=== PATIENT | female | born 1980 ===

== ENCOUNTER 2021-02-01 09:04 | Emergency (ER) | payer OTHER ==
[~2021-02-01 09:04] MED LIST: Iopamidol 612 MG/ML 100 ML Bottle IVPUSH ONE
[2021-02-01 09:31] LABS: ANION GAP 15.6 mEq/L (7-13); CHLORIDE,CL 106 mmol/L (98-107); SODIUM,NA 142 mmol/L (136-145)
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
[2021-02-01] MEDS ORDERED: Acetaminophen 500 MG Tab PO ONE (11:09)
== END 2021-02-01 12:47 | disposition home or self-care (01) ==
LOC: DL.ED 09:04
DX: S00.03XA Contusion of scalp, initial encounter (principal); S80.11XA Contusion of right lower leg, initial encounter; S40.022A Contusion of left upper arm, initial encounter; V49.40XA Driver injured in collision with unspecified motor vehicles in traffic accident, initial encounter; Y92.410 Unspecified street and highway as the place of occurrence of the external cause
CPT/HCPCS: 36415; 70450; 70486; 71250; 72125; 73060-LT; 73090-LT; 73590-RT; 74176; 80053; 84703; 85025; 99284; 99284-25; A9270-GY